=== PATIENT | male | born 1985 | race African-American/Black ===

== ENCOUNTER 2017-01-08 08:32 | Emergency (ER) | payer MEDICAID ==
[2017-01-08 09:19] LABS: URINE BILIRUBIN NEGATIVE (NEG); URINE BLOOD NEGATIVE (NEG); URINE GLUCOSE (UA) NEGATIVE (NEG); URINE KETONE NEGATIVE (NEG); URINE LEUKOCYTE ESTERASE NEGATIVE (NEG); URINE NITRITE NEGATIVE (NEG); URINE PROTEIN SMALL (NEG)
[2017-01-08 09:22] LABS: URINE APPEARANCE CLEAR; URINE COLOR YELLOW
[2017-01-08] MEDS ORDERED: VIBRAMYCIN100 M1 PO (09:22)
[2017-01-08 09:30] LABS: URINE EPITHELIAL CELLS N /[HPF] (0-10); URINE MUCUS 1+; URINE WBC 0 /[HPF] (0-5)
== END 2017-01-08 09:52 ==
LOC: EDMED 08:32
PROVIDERS: Emergency Medicine
DX: N50.812 Left testicular pain (principal); N50.811 Right testicular pain; F17.200 Nicotine dependence, unspecified, uncomplicated